=== PATIENT | male | born 1955 | race Caucasian/White ===

== ENCOUNTER 2018-10-19 16:17 | Emergency (ER) | payer OTHER ==
[~2018-10-19] VITALS: Ht 180.3 cm; Wt 94.3 kg
[2018-10-19 16:45] VITALS: BP 144/80
--- NOTE | 2018-10-19 16:45 | NUR ---
ED Nurse Note: patient walked in by tima servin, complaining of abdomen pain.
--- NOTE | 2018-10-19 16:46 | NUR ---
ED Nurse Note: per patient he did not have bowel movement since this Wednesday. patient feels bloated, distended. AAO x 4, skin is intact, dry, warm to touch. patient has nonlabored breathing. VSS at this time. will continue to monitor.
[2018-10-19] MEDS ORDERED: Isovue-300 100ml vial INJ PRN (17:00)
[2018-10-19 17:20] LABS: BASOPHILS % (AUTO) 1.1 % (0.0-2.0); HEMATOCRIT 41.9 % (42.0-52.0); HEMOGLOBIN 14.3 G/DL (14.2-18.0); LYMPHOCYTES % (AUTO) 15.7 % (20.0-45.0); MEAN CORPUSCULAR VOLUME 92 FL (80-99); MONOCYTES % (AUTO) 8.8 % (1.0-10.0); NEUTROPHILS % (AUTO) 73.3 % (45.0-75.0); PLATELET COUNT 204 K/UL (150-450); RED BLOOD COUNT 4.58 M/UL (4.70-6.10); RED CELL DISTRIBUTION WIDTH 11.3 % (11.6-14.8); WHITE BLOOD COUNT 6.8 K/UL (4.8-10.8)
[2018-10-19 17:39] LABS: ANION GAP 8 mmol/L (5-15); BLOOD UREA NITROGEN 12 mg/dL (7-18); CALCIUM 9.1 MG/DL (8.5-10.1); CARBON DIOXIDE 27 MMOL/L (21-32); CHLORIDE 100 MMOL/L (98-107); CREATININE 0.9 MG/DL (0.55-1.30); POTASSIUM 4.3 MMOL/L (3.5-5.1); SODIUM 135 MMOL/L (136-145)
[2018-10-19 17:44] LABS: ALANINE AMINOTRANSFERASE 38 U/L (12-78); ALBUMIN 3.8 G/DL (3.4-5.0); ALKALINE PHOSPHATASE 85 U/L (46-116); ASPARTATE AMINO TRANSFERASE 37 U/L (15-37); BILIRUBIN,TOTAL 0.5 MG/DL (0.2-1.0)
[2018-10-19] MEDS ORDERED: Ketorolac 30mg Inj IV ONE (17:45)
[2018-10-19] MEDS ORDERED: Fleet's Enema 133ml RECTAL ONE (18:45)
--- NOTE | 2018-10-19 19:30 | NUR ---
ED Nurse Note: Urine collected; sent down to lab.
[2018-10-19 19:53] LABS: APPEARANCE,URINE CLEAR; BILIRUBIN, URINE NEGATIVE (NEGATIVE); COLOR,URINE PALE YELLOW; GLUCOSE, URINE (UA) NEGATIVE (NEGATIVE); KETONES,URINE NEGATIVE (NEGATIVE); LEUKOCYTE ESTERASE ,URINE NEGATIVE (NEGATIVE); NITRITE,URINE NEGATIVE (NEGATIVE); PH,URINE 6.5 (4.5-8.0); PROTEIN,URINE 1+ (NEGATIVE); UROBILINOGEN,URINE NORMAL MG/DL (0.0-1.0)
--- NOTE | 2018-10-19 20:11 | NUR ---
ED Nurse Note: Pt back from imaging. Family member at bedside.
--- NOTE | 2018-10-19 20:59 | Emergency Room Report ---
History of Present Illness General Chief Complaint: Abdominal Pain Source: Patient Present Illness HPI Patient complains of constipation for the past week and a half. He states that he is also developed severe abdominal pain. The patient states that at times the pain will be so severe and crampy that he can barely tolerate it. He states today he tried to have a bowel movement multiple times because he will get the sensation and then he will not have a bowel movement. He states the stool has been very hard. He states that he doesn't really have a history of constipation prior to about a week and a half ago. He denies fever or chills. He denies nausea or vomiting. He has no other complaints. Allergies: Coded Allergies: No Known Allergies (Unverified , 10/19/18) Patient History Past Medical History: none, see triage record Social History: Denies: smoking, alcohol use, drug use Reviewed Nursing Documentation: PMH: Agreed; PSxH: Agreed Nursing Documentation-PMH Past Medical History: No Stated History Review of Systems All Other Systems: negative except mentioned in HPI Physical Exam Vital Signs Date Time Temp Pulse Resp B/P (MAP) Pulse Ox O2 Delivery O2 Flow Rate FiO2 10/19/18 16:27 97.9 74 18 149/87 97 Room Air Sp02 EP Interpretation: reviewed, normal General Appearance: no apparent distress, alert, GCS 15, non-toxic Head: normocephalic, atraumatic Eyes: bilateral eye normal inspection, bilateral eye PERRL ENT: hearing grossly normal, normal pharynx, no angioedema, normal voice Neck: full range of motion, supple/symm/no masses Respiratory: chest non-tender, lungs clear, normal breath sounds, no respiratory distress, no retraction, no accessory muscle use, speaking full sentences Cardiovascular #1: regular rate, rhythm, no edema Gastrointestinal: normal bowel sounds, soft, no guarding, no rebound, tenderness - TTP diffusely, distended Rectal: deferred Musculoskeletal: back normal, gait/station normal, normal range of motion, non- tender Neurologic: alert, oriented x3, responsive, motor strength/tone normal, sensory intact, speech normal Psychiatric: judgement/insight normal, memory normal, mood/affect normal, no suicidal/homicidal ideation Skin: normal color, no rash, warm/dry, well hydrated Medical Decision Making Diagnostic Impression: Primary Impression: Constipation ER Course This patient presented with constipation and abdominal pain. I felt that the patient needed a CT of the abdomen and pelvis and this is obtained. There was some focal wall thickening. There is also hostile transudative descending and sigmoid colon. There was no obvious colitis. The patient does have a history of colitis. He could have inflammatory bowel disease that is undiagnosed. I will have the patient follow up closely with his primary care physician. The patient was given a copy of the CT report to get see his primary care physician. I will also place the patient on a bowel regimen for his constipation. He was given a Fleet enema here in the emergency department had complete relief of symptoms and had several large bowel movements. The patient is given close return precautions and follow-up instructions. Laboratory Tests Test 10/19/18 17:10 10/19/18 19:30 White Blood Count 6.8 K/UL (4.8-10.8) Red Blood Count 4.58 M/UL (4.70-6.10) L Hemoglobin 14.3 G/DL (14.2-18.0) Hematocrit 41.9 % (42.0-52.0) L Mean Corpuscular Volume 92 FL (80-99) Mean Corpuscular Hemoglobin 31.2 PG (27.0-31.0) H Mean Corpuscular Hemoglobin Concent 34.1 G/DL (32.0-36.0) Red Cell Distribution Width 11.3 % (11.6-14.8) L Platelet Count 204 K/UL (150-450) Mean Platelet Volume 7.7 FL (6.5-10.1) Neutrophils (%) (Auto) 73.3 % (45.0-75.0) Lymphocytes (%) (Auto) 15.7 % (20.0-45.0) L Monocytes (%) (Auto) 8.8 % (1.0-10.0) Eosinophils (%) (Auto) 1.0 % (0.0-3.0) Basophils (%) (Auto) 1.1 % (0.0-2.0) Sodium Level 135 MMOL/L (136-145) L Potassium Level 4.3 MMOL/L (3.5-5.1) Chloride Level 100 MMOL/L (98-107) Carbon Dioxide Level 27 MMOL/L (21-32) Anion Gap 8 mmol/L (5-15) Blood Urea Nitrogen 12 mg/dL (7-18) Creatinine 0.9 MG/DL (0.55-1.30) Estimate Glomerular Filtration Rate > 60 mL/min (>60) Glucose Level 108 MG/DL (74-106) H Calcium Level 9.1 MG/DL (8.5-10.1) Total Bilirubin 0.5 MG/DL (0.2-1.0) Aspartate Amino Transferase (AST) 37 U/L (15-37) Alanine Aminotransferase (ALT) 38 U/L (12-78) Alkaline Phosphatase 85 U/L (46-116) Total Protein 7.6 G/DL (6.4-8.2) Albumin 3.8 G/DL (3.4-5.0) Globulin 3.8 g/dL Albumin/Globulin Ratio 1.0 (1.0-2.7) Lipase 186 U/L (73-393) Urine Color Pale yellow Urine Appearance Clear Urine pH 6.5 (4.5-8.0) Urine Specific [place] 1.010 (1.005-1.035) Urine Protein 1+ (NEGATIVE) H Urine Glucose (UA) Negative (NEGATIVE) Urine Ketones Negative (NEGATIVE) Urine Blood Negative (NEGATIVE) Urine Nitrite Negative (NEGATIVE) Urine Bilirubin Negative (NEGATIVE) Urine Urobilinogen Normal MG/DL (0.0-1.0) Urine Leukocyte Esterase Negative (NEGATIVE) Urine RBC 0-2 /HPF (0 - 0) H Urine WBC 0 /HPF (0 - 0) Urine Squamous Epithelial Cells None /LPF (NONE/OCC) Urine Bacteria None /HPF (NONE) CT/MRI/US Diagnostic Results CT/MRI/US Diagnostic Results : Imaging Test Ordered: CT abd/pelvis Impression The distal colon wall thickening. See official report. No acute findings. Last Vital Signs Date Time Temp Pulse Resp B/P (MAP) Pulse Ox O2 Delivery O2 Flow Rate FiO2 10/19/18 16:45 98.3 68 16 144/80 100 Room Air Status: improved Disposition: HOME, SELF-CARE Condition: Improved Referrals: NON PHYSICIAN (PCP) Leticia Gutierrez DO Oct 19, 2018 20:59
[2018-10-19] MEDS ORDERED: COLACE100 MG ORAL (21:21)
[2018-10-19] MEDS ORDERED: MIRALAX17 G2 ORAL (21:21)
[2018-10-19] MEDS ORDERED: FLEET ENEMA133 ML RECTAL (21:21)
[2018-10-19 21:30] VITALS: BP 144/80
--- NOTE | 2018-10-19 21:30 | NUR ---
ED Nurse Note: Patient cleared cleared for discharge per ERMD. AO4. NAD. VSS. Accompanied by family member. Patient given prescriptions and discharge instructions; verbalized understanding. ID removed. Patient ambulated steady out of ED with all belongings.
--- NOTE | 2018-10-20 09:35 | Diagnostic Imaging Report ---
Clinical Indication: Abdominal pain, difficulty with bowel movements Technique: Patient given a limited amount of oral contrast. IV administration nonionic contrast. Venous phase spiral acquisition obtained through the abdomen and pelvis. Multiplanar reconstructions were generated. Total dose length product 726.56 mGycm. CTDIvol(s) 12.67 mGy. Dose reduction achieved using automated exposure control Comparison: none Findings: The proximal colon is filled with liquid contents. Distal colon is gas-filled, portions upper limits normal in caliber. There is equivocal mild thickening of the rectal wall, probably an artifact of under distention The appendix is normal. The distal and terminal ileum are slightly dilated, containing small bowel feces. This extends all the way to the ileocecal valve and no transition point is demonstrated. The remainder of the small bowel is normal in caliber. No free or loculated intraperitoneal gas or fluid is evident. Distal esophagus, stomach, duodenum are unremarkable. The liver, gallbladder, bile ducts, pancreas, spleen, adrenals are unremarkable. The kidneys demonstrate lower pole calyceal calculi bilaterally, 2 on the right and one on the left, largest in the right lower pole measuring 6 mm long axis dimension. There is a large cyst coming off the lower pole the right kidney. There are bilateral subcentimeter low-attenuation renal lesions, too small to characterize, most likely benign simple cysts. No ureteral calculi, hydronephrosis, or hydroureter demonstrated. The bladder is unremarkable. The prostate is slightly prominent. The included lung bases demonstrate some posterior dependent atelectatic changes bilaterally. The bones demonstrate degenerative spondylosis changes. Impression: Liquid stool in the proximal colon, could indicate diarrhea. Focally mildly dilated distal and terminal ileum, with small bowel feces indicating stasis of contents. May reflect focal ileus/dysmotility Mild rectal wall thickening with slight stranding of the perirectal fat, suspicious for indicate proctitis Bilateral nonobstructive lower pole renal calculi Right renal cysts. Subcentimeter low-attenuation renal lesions, too small to characterize, most likely benign simple cortical cysts. No further follow-up necessary Incidental findings as noted, including degenerative spondylosis, posterior dependent pulmonary atelectatic changes This agrees with the preliminary interpretation provided overnight by [facility] teleradiology service. The CT scanner at [facility] is accredited by the [employer] and the scans are performed using protocols designed to limit radiation exposure to as low as reasonably achievable to attain images of sufficient resolution adequate for diagnostic evaluation.
== END 2018-10-19 21:30 | disposition home or self-care (01) ==
LOC: EMR 17:16
DX: K59.00 Constipation, unspecified (principal); N28.1 Cyst of kidney, acquired; N20.0 Calculus of kidney
CPT/HCPCS: 36415; 74177; 80053; 81003; 83690; 85025; 96361; 96374; 99284; J1885; Q9967